=== PATIENT | male | born 1960 | race Caucasian/White ===

== ENCOUNTER 2019-02-03 12:47 | Outpatient (REF) | payer MEDICARE, SELFPAY ==
[2019-02-03 13:07] LABS: HGB 14.1 g/dL (13.5-17.5); Mean Corp. HGB Concentration 32.8 g/dL (32.0-36.0); Mean Corpuscular Hemoglobin 30.2 pg (27.0-33.0); Mean Corpuscular Volume 92.1 fL (80-95); Mean Platelet Volume 9.9 fL (8.0-11.0); Platelet Count 341 x1000/uL (130-400); RBC 4.67 m/cumm (4.50-6.00); RBC Distribution Width 13.5 % (11.8-14.1); White Blood Cell Count 10.76 k/cumm (4.4-10.8)
[2019-02-03 13:31] LABS: ALT 18 U/L (12-78); AST 15 U/L (15-37); Albumin 3.6 g/dL (3.4-5.0); Alkaline Phosphatase 87 U/L (46-116); Anion Gap 8.6 mmol/L (3-11); BUN 15 mg/dL (7-18); Bilirubin, Total 0.3 mg/dL (0.2-1.0); CO2 28.4 mmol/L (21.0-32.0); CREATININE 1.13 mg/dL (0.70-1.30); Chloride 103 mmol/L (98-107); Glucose 112 mg/dL (70-100); Potassium 4.1 mmol/L (3.5-5.1); Sodium 140 mmol/L (136-145); TSH (W/Ref FT4) 7.26 uIU/mL (0.358-3.74); Total Protein 6.8 g/dL (6.4-8.2)
[2019-02-03 13:55] LABS: FREE T4 0.82 ng/dL (0.76-1.46)
== END 2019-02-03 13:07 ==
LOC: NCHCN 12:47
PROVIDERS: PCP Family Medicine; Visit Provider Family Medicine
DX: R63.5 Abnormal weight gain (principal); K76.0 Fatty (change of) liver, not elsewhere classified
CPT/HCPCS: 80053; 85027; 84439; 84443

== ENCOUNTER → 2019-03-19 13:55 | Outpatient (BNVA) | payer MEDICARE, SELFPAY | PROVIDERS: PCP Family Medicine; Referring Provider Family Medicine; Visit Provider Student in an Organized Health Care Education/Training Program | DX: M25.521 Pain in right elbow (principal); M77.12 Lateral epicondylitis, left elbow | CPT/HCPCS: 20605; 99201; 99213; J1030; L3908 ==

== ENCOUNTER 2019-05-05 09:05 | Outpatient (REF) | payer MEDICARE, SELFPAY ==
[2019-05-05 13:39] LABS: TSH (W/Ref FT4) 5.84 uIU/mL (0.358-3.74); Uric Acid 6.6 mg/dL (3.5-7.2)
[2019-05-05 14:08] LABS: FREE T4 0.86 ng/dL (0.76-1.46)
== END 2019-05-05 09:25 ==
LOC: NCHCN 09:05
PROVIDERS: PCP Family Medicine; Visit Provider Family Medicine
DX: R94.6 Abnormal results of thyroid function studies (principal); M10.9 Gout, unspecified
CPT/HCPCS: 84439; 84443; 84550

== ENCOUNTER 2020-03-24 21:38 | Outpatient (REF) | payer MEDICARE, SELFPAY ==
[2020-03-24 20:00] LABS: HCT 45.6 % (40.0-50.0); HGB 15.3 g/dL (13.5-17.5); Mean Corp. HGB Concentration 33.6 g/dL (32.0-36.0); Mean Corpuscular Hemoglobin 30.5 pg (27.0-33.0); Mean Corpuscular Volume 90.8 fL (80-95); Mean Platelet Volume 9.6 fL (8.0-11.0); Platelet Count 373 x1000/uL (130-400); RBC 5.02 m/cumm (4.50-6.00); RBC Distribution Width 13.5 % (11.8-14.1); White Blood Cell Count 10.13 k/cumm (4.4-10.8)
[2020-03-24 20:24] LABS: ALT 21 U/L (16-63); AST 18 U/L (15-37); Albumin 3.9 g/dL (3.4-5.0); Alkaline Phosphatase 70 U/L (46-116); BUN 11 mg/dL (7-18); Bilirubin, Total 0.7 mg/dL (0.2-1.0); Calcium 9.3 mg/dL (8.5-10.1); Chloride 101 mmol/L (98-107); Glucose 94 mg/dL (74-106); Potassium 4.7 mmol/L (3.5-5.1); Sodium 138 mmol/L (136-145); TSH (W/Ref FT4) 2.18 uIU/mL (0.36-3.74); Total Protein 7.3 g/dL (6.4-8.2)
[2020-03-24 20:25] LABS: Hemoglobin A1C 5.8 % (3.8-5.6)
[2020-03-24 21:26] LABS: Calculated LDL 132 mg/dL (<100); Cholesterol 210 mg/dL (<200); HDL Cholesterol 37 mg/dL (40-60); Triglyceride 209 mg/dL (<150)
[2020-03-25 06:47] LABS: Vitamin D 25 Total 56.8 ng/ml (30-100)
== END 2020-03-24 21:58 ==
LOC: NCHCN 21:38
PROVIDERS: PCP Family Medicine; Visit Provider Family Medicine
DX: K76.0 Fatty (change of) liver, not elsewhere classified (principal); R73.03 Prediabetes; E03.9 Hypothyroidism, unspecified; Z79.899 Other long term (current) drug therapy
CPT/HCPCS: 80053; 80061; 82306; 85027; 83036; 84443

== ENCOUNTER 2020-09-16 09:08 | Outpatient (REF) | payer MEDICARE, SELFPAY ==
[2020-09-16 18:42] LABS: ALT 13 U/L (16-63); Anion Gap 8.2 mmol/L (3-11); BUN 17 mg/dL (7-18); CO2 27.8 mmol/L (21.0-32.0); Calculated LDL 99 mg/dL (<100); Chloride 103 mmol/L (98-107); Cholesterol 152 mg/dL (<200); Glucose 104 mg/dL (74-106); HDL Cholesterol 38 mg/dL (40-60); Potassium 4.8 mmol/L (3.5-5.1); Sodium 139 mmol/L (136-145); Triglyceride 78 mg/dL (<150)
== END 2020-09-16 09:28 ==
LOC: NCHCN 09:08
PROVIDERS: PCP Family Medicine; Visit Provider Family Medicine
DX: E78.5 Hyperlipidemia, unspecified (principal); I10 Essential (primary) hypertension
CPT/HCPCS: 80048; 80061; 84460

== ENCOUNTER → 2021-01-26 01:44 | Outpatient (CLI) | payer MEDICARE, SELFPAY ==
--- NOTE | 2021-01-26 09:48 | DI.RAD_ITS ---
EXAM: XR WRIST LT COMPLETE CLINICAL HISTORY: LT WRIST PAIN, M25.532,LT GANGLION CYST VOLAR,M67.432,H/O OLD WRIST FX,. TECHNIQUE: 2D digital imaging was performed. COMPARISON: No exams were available for comparison FINDINGS: Three views of the left wrist reveal degenerative changes in the radiocarpal joint with joint space n arrowing and there is also prominent degenerative subarticular cyst in the radial styloid which measu res approximately 10 x 7 millimeters. There is a fracture in the scaphoid-navicular bone which exhib its some sclerosis and is probably not acute. Scapholunate distance is normal. No carpal dislocation IMPRESSION: Radiocarpal joint degenerative changes. Subtle suggestion of a nonacute appearing fracture of the sc aphoid. Recommend follow-up MRI. DATA REPOSITORY: RADIATION DOSE DELIVERED:
== END ==
PROVIDERS: PCP Family Medicine; Visit Provider Family Medicine
DX: M25.532 Pain in left wrist (principal); M67.432 Ganglion, left wrist; M19.032 Primary osteoarthritis, left wrist
CPT/HCPCS: 73110

== ENCOUNTER 2021-06-03 15:43 | Outpatient (REF) | payer MEDICARE, SELFPAY ==
[2021-06-03 17:08] LABS: HGB 14.3 g/dL (13.5-17.5); MCH 31.2 pg (27.0-33.0); MCHC 32.5 % (32.0-36.0); MCV 95.9 fL (80-95); MPV 9.8 fL (8.0-11.0); Platelet Count 340 10^3/uL (130-400); RBC 4.59 10^6/uL (4.36-5.78); RDW 12.9 % (11.8-14.1); RDW-SD 45.5 fL
[2021-06-03 17:43] LABS: ALT 16 U/L (16-63); AST 19 U/L (15-37); Albumin 3.8 g/dL (3.4-5.0); Alkaline Phosphatase 60 U/L (46-116); Anion Gap 8.4 mmol/L (3-11); BUN 18 mg/dL (7-18); Bilirubin, Total 0.4 mg/dL (0.2-1.0); CO2 27.6 mmol/L (21.0-32.0); Calcium 8.8 mg/dL (8.5-10.1); Chloride 105 mmol/L (98-107); Glucose 110 mg/dL (74-106); Potassium 4.7 mmol/L (3.5-5.1); Sodium 141 mmol/L (136-145); TSH (W/Ref FT4) 0.47 uIU/mL (0.36-3.74); Total Protein 6.8 g/dL (6.4-8.2); Vitamin B12 423 pg/mL (193-986)
== END 2021-06-03 15:44 | disposition home or self-care (01) ==
LOC: NCHCN 15:43
PROVIDERS: PCP Family Medicine; Visit Provider Family Medicine
DX: R73.03 Prediabetes (principal); I10 Essential (primary) hypertension; K76.0 Fatty (change of) liver, not elsewhere classified; Z79.899 Other long term (current) drug therapy
CPT/HCPCS: 80053; 85027; 82607; 83036; 84443

== ENCOUNTER 2021-11-30 16:48 | Outpatient (REF) | payer MEDICARE, SELFPAY ==
[2021-11-30 19:30] LABS: ESR 19 mm/hr (0-20)
[2021-11-30 19:37] LABS: Calculated LDL 158 mg/dL (<100); Cholesterol 232 mg/dL (<200); HDL Cholesterol 41 mg/dL (40-60); Triglyceride 165 mg/dL (<150)
[2021-11-30 19:45] LABS: C-Reactive Protein 0.13 mg/dL (0.0-0.3)
[2021-12-02 09:15] LABS: Cyclic Citrullinated Peptide <2.5 U/mL (<5.0)
== END 2021-11-30 16:49 | disposition home or self-care (01) ==
LOC: NCHCN 16:48
PROVIDERS: PCP Family Medicine; Visit Provider Family Medicine
DX: I10 Essential (primary) hypertension (principal); M25.531 Pain in right wrist; M25.532 Pain in left wrist; E78.5 Hyperlipidemia, unspecified
CPT/HCPCS: 80061; 85652; 86200; 86140

== ENCOUNTER 2021-12-22 00:56 | Outpatient (CLI) | payer MEDICARE, SELFPAY ==
--- NOTE | 2021-12-22 | DI.CTLCSR_ITS ---
Exam(s) CT CHEST LUNG CANCER SCREEN EXAM: CT CHEST LUNG CANCER SCREEN CLINICAL HISTORY: SCREENING FOR LUNG CA, SMOKER, F17.210 TECHNIQUE: Imaging Protocol: Axial computed tomography images with coronal and sagittal reformatted images were created and reviewed COMPARISON: No exams were available for comparison FINDINGS: Tracheobronchial tree: Patent where visualized. Pulmonary parenchyma: No consolidation or dominant measurable mass. No architectural distortion. Ther e appear fissural nodules associated with the left major and right minor fissures. Lung Nodules: There is a 3 mm nodule in the right middle lobe. There is a 3 mm nodule in the left up per lobe. Mediastinum and Yumi: No dominant adenopathy or fluid collection. The esophagus is unremarkable. Thyroid gland: Unremarkable. Lymph nodes: Unremarkable. Pleura: No effusion or pneumothorax. Heart: The heart is not dilated. Coronary artery calcifications are present. No pericardial effusion . Aorta: Thoracic aorta non-dilated.Atherosclerosis. Upper abdomen: Unremarkable. Soft Tissues: Unremarkable. Bones: Within normal limits. IMPRESSION: Less than 4 mm nodules in the right mid lung left upper lobes. Lung RADS Cat 2 - Benign Appearance / Behavior: Nodules with a very low likelihood of becoming a clin ically active cancer due to size or lack of growth Lung-RADS 1.0 CATEGORIES: Category 0 - Prior chest CT exam(s) being located for comparison. Category 1 - Annual screening in 12 months. No nodules or definitely benign nodules. Category 2 - Annual screening in 12 months. Benign appearance. Nodules with low likelihood of becomin g active cancer. Category 3 - 6-month follow-up. Probably benign. Short-term follow-up suggested. Nodules with low lik elihood of becoming active cancer. Category 4A - 3-month follow-up and CT/PET if >8 mm in size. Suspicious finding. Findings which requi re additional testing. Category 4B - Findings which require additional testing and tissue sampling. Suspicious finding. Category 4X - Category 3 or 4 nodules with additional features or imaging findings that increases the suspicion of malignancy. Modifier S- Potentially clinically significant finding. (Non lung cancer) RADIATION DOSE DELIVERED: 92.6mGy.cm Total DLP !Error CTDIvol 92.6mGy.cm Total DLP !Error CTDIvol DATA REPOSITORY: All CT scans at this facility are submitted to the National Radiology Data Registry (NRDR) Dose Index Registry (DIR) with the [employer] (ACR). RADIATION OPTIMIZATION: All CT scans at this facility use at least one of these dose optimization te chniques: automated exposure control; mA and/or kV adjustment per patient size (includes targeted exa ms where dose is matched to clinical indication); or iterative reconstruction.
== END 2021-12-22 01:16 ==
PROVIDERS: PCP Family Medicine; Visit Provider Family Medicine
DX: F17.210 Nicotine dependence, cigarettes, uncomplicated (principal); Z12.2 Encounter for screening for malignant neoplasm of respiratory organs; R91.8 Other nonspecific abnormal finding of lung field
CPT/HCPCS: 71271

== ENCOUNTER 2022-04-10 02:19 | Outpatient (CLI) | payer MEDICARE, SELFPAY ==
--- NOTE | 2022-04-10 11:19 | DI.RAD_ITS ---
Exam(s) XR HIP RT COMPLETE AP PELVIS EXAM: XR HIP RT COMPLETE AP PELVIS INDICATION: RT HIP PAIN, M25.551. COMPARISON: No exams were available for comparison TECHNIQUE: 2D digital imaging was performed. Three views. FINDINGS: Hardware at the lumbosacral junction. Spinal stimulator device. Degenerative changes at the inferio r SI joints and pubic symphysis. There is mild bilateral acetabular spurring. The hip joint spaces are well maintained vascular calcifications. IMPRESSION: Mild degenerative changes of both hips. DATA REPOSITORY: RADIATION DOSE DELIVERED:
== END 2022-04-10 02:39 ==
LOC: DI 02:19
PROVIDERS: PCP Family Medicine; Visit Provider Family Medicine
DX: M25.551 Pain in right hip (principal)
CPT/HCPCS: 73502

== ENCOUNTER 2022-05-25 10:51 | Outpatient (CLI) | payer MEDICARE, SELFPAY ==
--- NOTE | 2022-05-25 08:30 | DI.RAD_ITS ---
Exam(s) XR LUMBAR SPINE COMPLETE EXAM: XR LUMBAR SPINE COMPLETE CLINICAL HISTORY: eval LBP. TECHNIQUE: 2D digital imaging was performed. COMPARISON: No exams were available for comparison FINDINGS: Five views: There is posterior fusion hardware at L5-S1 level comprised of posterior fusion rods and bilateral in trapedicular screws at both levels. No evidence of fracture. Mild degenerative anterolisthesis L4 upon L5 noted. Mild multilevel disc s pace narrowing. No scoliosis. Stimulator-electrode wires noted posteriorly at L4-5 level. IMPRESSION: DATA REPOSITORY: RADIATION DOSE DELIVERED:
== END 2022-05-25 10:52 | disposition home or self-care (01) ==
LOC: DIORS 10:52
PROVIDERS: PCP Family Medicine; Referring Provider Family Medicine; Visit Provider Student in an Organized Health Care Education/Training Program
DX: M25.851 Other specified joint disorders, right hip (principal); M47.816 Spondylosis without myelopathy or radiculopathy, lumbar region; M24.89 Other specific joint derangement of other specified joint, not elsewhere classified
CPT/HCPCS: 99203; 72110

== ENCOUNTER 2022-06-08 02:09 | Outpatient (CLI) | payer MEDICARE, SELFPAY ==
--- NOTE | 2022-06-08 08:15 | DI.RAD_ITS ---
Exam(s) RF JOINT INJECTION FLUORO GUID EXAM: RF JOINT INJECTION FLUORO GUID CLINICAL HISTORY: R HIP INJ UNDER FLUORO,RT HIP PAIN, M25.551,FLUORO ASSISTED INJECTION. TECHNIQUE: 2D and realtime digital imaging was performed. COMPARISON: No exams were available for comparison FINDINGS: Fluoroscopy was provided for Dr. Guallpa for guidance with performing a right hip injection Please see procedure note for details. Fluoro time: 0.04seconds RADIATION DOSE DELIVERED: brad Sams= 0.63 mGy
[2022-06-08] MEDS: Omnipaque 300 MG/ML 10 ML BTL IJ (15:16)
[2022-06-08] MEDS: methylPREDNISolone ACETATE 80 MG/ML VIAL IM (15:16)
[2022-06-08] MEDS: Bupivacaine 0.5% Pres-Free 10 ML VIAL 5 ML IJ (15:17)
--- NOTE | 2022-06-08 19:58 | W.PROCNOTE ---
Date of service: 06/08/22 Time of Service: 14:20 Procedure Note Date of procedure: 06/08/22 Procedure: Right Hip Injection with Fluoroscopic Guidance Surgeon/Proceduralist/Physician: Solitario Guallpa Procedure Diagnosis: Right Hip Pain Procedure Indications: Shar has had persistent pain of the RIGHT hip and groin. Noninvasive measures have been tried. To serve as both diagnostic and therapeutic, an injection under fluoroscopy was recommended. I had discussed the risks of the procedure and the patient elected to proceed. Procedure Description: Shar was greeted in the flouroscopy room. The correct side was identified and the consent was reviewed with the patient and signed. The patient was then placed in the supine position on the fluoroscopy table. The RIGHT hip was then prepped with Chloraprep. The anterolateral injection starting point was identiifed by bony landmarks and fluoroscopy. The skin and soft tissue in the tract of the injection was anesthetized with 1% Lidocaine. A spinal needle was then inserted deep into the hip joint at the level of the lateral femoral neck under fluoroscopic guidance. A small amount of Omnipaque solution was injected to confirm intraarticular placement. Once confirmed, the hip was injected with 6cc of 0.5% Bupivicaine and 80mg of Depo-Medrol. A bandaid was placed on the injection site. The patient tolerated the procedure well.
== END 2022-06-08 02:29 ==
LOC: DI 02:09
PROVIDERS: PCP Family Medicine; Visit Provider Student in an Organized Health Care Education/Training Program
DX: M25.551 Pain in right hip (principal)
CPT/HCPCS: 20610; 77002; J1040

== ENCOUNTER 2022-09-20 13:07 | Outpatient (CLI) | payer MEDICARE, SELFPAY ==
[2022-09-20 13:43] VITALS: BP 120/78; PULSE 66; RESP 20; TEMP 37; O2SAT 98
[2022-09-20] MEDS: methylPREDNISolone ACETATE 80 MG/ML VIAL IJ (14:12)
[2022-09-20] MEDS: Omnipaque 240 MG/ML 50 ML BTL IJ (14:12)
[2022-09-20 14:16] VITALS: BP 115/77; PULSE 68; RESP 14; O2SAT 97
--- NOTE | 2022-09-20 14:21 | DI.RAD_ITS ---
Exam(s) XR PAIN CLINIC SACRIOILIAC 2V EXAM: XR PAIN CLINIC SACRIOILIAC 2V CLINICAL HISTORY: Dx: Sacroiliac Joint Dysfunction. TECHNIQUE: Fluoroscopy was provided for the referring physician for guidance with performing pain cl inic injection procedure. COMPARISON: No exams were available for comparison FINDINGS: Please see procedure note for details. Fluoro time: 15 seconds RADIATION DOSE DELIVERED: Ka,r=4.83 mGy
--- NOTE | 2022-09-20 14:23 | PDOC.PAIN ---
Date of service: 09/20/22 Time of Service: 14:23 Pain Clinic Procedure Note Procedure Note Procedure Note: INTRA-ARTICULAR SI JOINT INJECTION Shar Lindsey has been referred to the [facility] for intra-articular SI joint injection. COMMENTS: He was referred for this procedure by his orthopedic surgeon (Dr. Guallpa). Pre-procedure pain VAS was 5/10. Dx: Sacroiliac joint dysfunction Patient was interviewed and the medical record reviewed. There were no medical, pharmacologic, radiographic or other structural contraindications to attempting fluoroscopically guided intra-articular SI joint injection. Risks and expected side effects as well as potential benefit of the procedure were reviewed and voiced concerns addressed. The printed consent form was signed and witnessed. Standard time-out procedure was performed. Patient was placed in the prone position on the fluoroscopy table and automated blood pressure cuff and pulse oximeter applied. The skin entry point for approaching the right SI joint was identified under the most advantageous fluoroscopic view and marked. Following thorough Chlorhexadine preparation of the skin and draping and 1% lidocaine infiltration of the skin entry point and subcutaneous tissues, a 22 gauge spinal needle was placed under fluoroscopic guidance into the right SI joint was identified under the most advantageous fluoroscopic view and marked. Intra-articular placement was confirmed by a clear arthrogram resulting from the injection of 0.25ml Omnipaque 240, 1ml 1% lidocaine, and 80mg Depomedrol were injected intra-articularily with an initial reproduction of a significant component of the usual pain. Vital signs were stable throughout the procedure and were as recorded in the docflowsheet by the nursing staff. If given, dosages of intravenous drugs for anxiolysis and analgesia were documented in MAR. Follow up plans and appointments were discussed with the patient. Post procedure instruction was given as documented in nursing documentation and having met discharge criteria, and was discharged from the [facility]. COMMENTS: Post-procedure pain VAS was 2/10. Srinath Wiggins DO, MPH [facility]-Pain Management [facility] CC: Verónica Greer
== END 2022-09-20 13:08 | disposition home or self-care (01) ==
LOC: PC 13:08
PROVIDERS: PCP Family Medicine; Visit Provider Preventive Medicine Occupational Medicine
DX: M54.50 Low back pain, unspecified (principal); M53.3 Sacrococcygeal disorders, not elsewhere classified
CPT/HCPCS: G0260; 72200; J1040; Q9967

== ENCOUNTER 2022-11-20 17:14 | Outpatient (REF) | payer MEDICARE, SELFPAY ==
[2022-11-20 18:49] LABS: HCT 43.6 % (40.0-50.0); HGB 14.4 g/dL (13.5-17.5); MCH 30.9 pg (27.0-33.0); MCV 94 fL (80-95); MPV 9.6 fL (8.0-11.0); Platelet Count 313 10^3/uL (130-400); RBC 4.66 10^6/uL (4.36-5.78); RDW 12.7 % (11.8-14.1); RDW-SD 43.8 fL; WBC 7.77 10^3/uL (4.4-10.8)
[2022-11-20 19:04] LABS: ALT 11 U/L (16-63); AST 24 U/L (15-37); Albumin 3.9 g/dL (3.4-5.0); Alkaline Phosphatase 51 U/L (46-116); BUN 14 mg/dL (7-18); Bilirubin, Total 0.6 mg/dL (0.2-1.0); CREATININE 1.1 mg/dL (0.70-1.30); Chloride 102 mmol/L (98-107); Estimated GFR 75.43 (mL/min/1.73m2); Glucose 96 mg/dL (74-106); Potassium 4.7 mmol/L (3.5-5.1); Sodium 137 mmol/L (136-145); Total Protein 7.3 g/dL (6.4-8.2)
[2022-11-21 19:14] LABS: Estimated Average Glucose 117 mg/dL; Hemoglobin A1C 5.7 % (<5.7)
[2022-11-22 10:54] LABS: HIV-1/2 Ag & Ab Screen Negative (Negative)
== END 2022-11-20 17:15 | disposition home or self-care (01) ==
LOC: NCHCN 17:14
PROVIDERS: PCP Family Medicine; Visit Provider Family Medicine
DX: R73.03 Prediabetes (principal); Z11.4 Encounter for screening for human immunodeficiency virus [HIV]; K76.0 Fatty (change of) liver, not elsewhere classified
CPT/HCPCS: 80053; 85027; 87389; 83036

== ENCOUNTER 2023-03-07 01:37 | Outpatient (CLI) | payer MEDICARE, SELFPAY ==
--- NOTE | 2023-03-07 | DI.CTLCSR_ITS ---
Exam(s) CT CHEST LUNG CANCER SCREEN EXAM: CT CHEST LUNG CANCER SCREEN CLINICAL HISTORY: CIGARETTE SMOKER, F17.210, SCREENING FOR LUNG CA TECHNIQUE: Imaging Protocol: Axial computed tomography images with coronal and sagittal reformatted images were created and reviewed COMPARISON: CT CT CHEST LUNG CANCER SCREEN from 12/22/2021 FINDINGS: Tracheobronchial tree: Patent where visualized. Pulmonary parenchyma: No consolidation or dominant measurable mass. No architectural distortion. Lung Nodules: There are stable pulmonary nodules. There are no nodules larger than 3 mm. Mediastinum and Yumi: No dominant adenopathy or fluid collection. The esophagus is unremarkable. Thyroid gland: Unremarkable. Lymph nodes: Unremarkable. Pleura: No effusion or pneumothorax. Heart: The heart is not dilated. Coronary artery calcifications are present. No pericardial effusion . Aorta: The ascending thoracic aorta measures 4.5 x 4.6 cm. Upper abdomen: Unremarkable. Soft Tissues: Mild gynecomastia. Bones: Within normal limits. IMPRESSION: Stable pulmonary nodules. Lung RADS Cat 2 - Benign Appearance / Behavior: Nodules with a very low likelihood of becoming a clin ically active cancer due to size or lack of growth Lung-RADS 1.0 CATEGORIES: Category 0 - Prior chest CT exam(s) being located for comparison. Category 1 - Annual screening in 12 months. No nodules or definitely benign nodules. Category 2 - Annual screening in 12 months. Benign appearance. Nodules with low likelihood of becomin g active cancer. Category 3 - 6-month follow-up. Probably benign. Short-term follow-up suggested. Nodules with low lik elihood of becoming active cancer. Category 4A - 3-month follow-up and CT/PET if >8 mm in size. Suspicious finding. Findings which requi re additional testing. Category 4B - Findings which require additional testing and tissue sampling. Suspicious finding. Category 4X - Category 3 or 4 nodules with additional features or imaging findings that increases the suspicion of malignancy. Modifier S- Potentially clinically significant finding. (Non lung cancer) RADIATION DOSE DELIVERED: 76.38mGy.cm Total DLP 76.38mGy.cmTotal DLP DATA REPOSITORY: All CT scans at this facility are submitted to the National Radiology Data Registry (NRDR) Dose Index Registry (DIR) with the [employer] (ACR). RADIATION OPTIMIZATION: All CT scans at this facility use at least one of these dose optimization te chniques: automated exposure control; mA and/or kV adjustment per patient size (includes targeted exa ms where dose is matched to clinical indication); or iterative reconstruction.
== END 2023-03-07 01:57 ==
PROVIDERS: PCP Family Medicine; Visit Provider Family Medicine
DX: F17.210 Nicotine dependence, cigarettes, uncomplicated (principal)
CPT/HCPCS: 71271

== ENCOUNTER 2023-06-04 11:02 | Outpatient (REF) | payer MEDICARE, SELFPAY ==
[2023-06-04 15:46] LABS: TSH (W/Ref FT4) 2.42 uIU/mL (0.36-3.74)
== END 2023-06-04 11:03 | disposition home or self-care (01) ==
LOC: NCHCN 11:02
PROVIDERS: PCP Family Medicine; Visit Provider Family Medicine
DX: E03.9 Hypothyroidism, unspecified (principal)
CPT/HCPCS: 84443

== ENCOUNTER → 2023-08-20 13:45 | Outpatient (BNVA) | payer MEDICARE, SELFPAY | PROVIDERS: PCP Family Medicine; Referring Provider Family Medicine; Visit Provider Surgery | DX: K40.90 Unilateral inguinal hernia, without obstruction or gangrene, not specified as recurrent (principal); Z12.11 Encounter for screening for malignant neoplasm of colon | CPT/HCPCS: 99214 ==

== ENCOUNTER 2023-10-17 07:05 | Day surgery (SDC) | payer MEDICARE, SELFPAY ==
[2023-10-17] VITALS (10 sets, daily range): BP systolic 98–127; BP diastolic 66–86; PULSE 43–70; RESP 15–20; TEMP 36.5–36.8; O2SAT 97–100; BMI 30.1
--- NOTE | 2023-10-17 06:47 | HPE_ITS ---
Assessment and Plan Assessment and plan (1) Right inguinal hernia: Status: Acute Assessment and plan: Mr. Lindsey is a pleasant 63-year-old gentleman whom I saw in [facility] today for repair of a right inguinal hernia that is starting to cause him some discomfort. He notices some burning pain. We discussed the procedure in detail using a pamphlet. We went over the pathophysiology of hernias. We reviewed risks of strangulation. We reviewed the signs and symptoms of incarceration or strangulation which he should seek immediate help in the emergency department. We reviewed the complications risk. After conversation he seemed to have a good understanding of both the repair as well as the possible complications. Risks, benefits and complications have been reviewed. Complications include but are not limited to bleeding, pain, infection, injury to underlying structures like bowel, recurrence, hematoma, seroma, chronic pain and adverse reaction to the medication. Questions were entertained and answered to their satisfaction and they wished to proceed. No guarantees were given or implied. Anesthesia: general Previous surgical intolerances: No Previous surgical complications: No Pulmonary risk factors: age > 60 and smoker Date of surgery: TBD Planned procedure: Yes Sleep apnea risks: No Can climb one flight of stairs (12-13 steps) in less than 30 seconds without stopping and without symptoms: Yes The surgery proposed for this patient is: low risk Active cardiac conditions: none Active risk factors: none ASA (acetylsalicylic acid): not used Beta blockers: not used Proceed with hernia repair with mesh History of Present Illness Narrative: Mr. Lindsey is a pleasant 63-year-old gentleman whom I saw in the office in August for a right inguinal hernia that was starting to cause him some discomfort. He thinks it probably started about a year ago. Over the last few months it has become a little bit more uncomfortable especially when he is cutting wood and stacking wood or if he is standing for long periods of time. He has noted a bulge now. He also has a burning sensation in his groin. He denies any issues with urination or with bowel movements. He has never had a hernia repair in the past. He has chronic pain secondary to multiple orthopedic issues. He has had back surgery, bilateral knee surgery and left ankle surgery. He takes Ultram, ibuprofen and Tylenol on a as needed basis. He says he has not taken the Ultram in a long time. He has not had any issues with anesthesia before. No family history of anesthesia issues. The patient is a smoker. He smokes about 1 to 1-1/2 packs a day for the last 40 to 45 years. He has not had any alcohol in the last 6 years. Review of Systems All systems reviewed & are unremarkable except as noted in HPI and below PFSH All Active Problems Encounter for screening colonoscopy (Acute) Right groin pain (Acute) Weight loss (Acute) Right inguinal hernia (Acute) Positive fecal occult blood test (Acute) Screening for colon cancer (Acute) Alcoholism (Acute) chronic, in remission Medical History Right hip pain Erectile dysfunction Hypertensive retinopathy Femoroacetabular impingement of right hip Derangement of right SI joint Lumbar spondylosis Low back pain Obesity Tobacco dependence Degenerative joint disease Gout Obstructive sleep apnea Anxiety Seasonal allergic rhinitis Subclinical hypothyroidism Prediabetes Bipolar disorder with depression Fatty infiltration of liver Hearing loss, bilateral Hypertension Hyperlipidemia Pyuria, sterile GERD (gastroesophageal reflux disease) Major depression, chronic Surgical History (Updated 10/17/23 @ 07:56 by Nicolette Trevizo) History of total bilateral knee replacement (TKR) S/P insertion of spinal cord stimulator placed 1999-pt. states battery no longer works but hardware is still in there Hx of arthroscopic knee surgery H/O spinal fusion History of colonoscopy Last one in [facility] per referral note Social History Smoking/Tobacco Use Status: Current every day Tobacco Type: cigarettes Smoking risk assessment performed?: Yes Alcohol Intake: former Drug use: Occasionally Substance use type: marijuana Housing: house Current gender identity: male Do you feel safe at home: Yes Do you feel safe in your relationship?: Yes Meds Allergies and Home Medications Allergies Allergy/AdvReac Type Severity Reaction Status Date / Time Penicillins Allergy Severe Anaphylaxsi Unverified 10/15/23 15:30 s Home Medications Medication Instructions Recorded Confirmed Type ibuprofen 200 mg tablet 800 mg PO Q6H PRN 07/02/20 10/17/23 History tramadol 50 mg tablet 50 mg PO Q8H PRN pain #30 tabs 05/26/22 10/17/23 Rx sildenafil 100 mg tablet (Viagra) 100 mg PO DAILY PRN 06/15/22 10/17/23 History acetaminophen 325 mg capsule 325 mg PO ONCE PRN 08/14/23 10/17/23 History (Tylenol) Exam Const General: cooperative, comfortable and no acute distress Nutritional Appearance: average body habitus Orientation: alert and oriented x3 HENMT Head: normocephalic and atraumatic Resp Effort & Inspection: normal respiratory effort Auscultation: clear to auscultation bilaterally Cardio Rate: regular rate Rhythm: regular rhythm GI Inspection: normal to inspection Palpation: soft, no hepatosplenomegaly, hernia (Right inguinal hernia) and nontender
--- NOTE | 2023-10-17 06:51 | ROE_ITS ---
Date of service: 10/17/23 Time of Service: 09:49 Operative Note Operative Note DATE OF PROCEDURE: 10/17/23 PRE-OP DIAGNOSIS: Right inguinal hernia POST-OP DIAGNOSIS: same (direct and indirect) PROCEDURE: Right inguinal hernia repair with mesh SURGEON: Bekah Edgar RUG UNDERLAY MACHINE OPERATOR: Stephany Ribeiro ANESTHESIA TYPE: Local By Surgeon, General LMA/ETT and Primary Nerve Block Refer to Anesthesia Record PATHOLOGY: none sent COMPLICATIONS: None Patient was transported to: PACU Patient's condition: stable Implants: Per Fix Light Plug: REF- [id number] LOT- [id number] 2027-07-02 Indications: Mr. Lindsey is a pleasant 63-year-old gentleman whom I saw in [facility] today for repair of a right inguinal hernia that is starting to cause him some discomfort. He notices some burning pain. We discussed the procedure in detail using a pamphlet. We went over the pathophysiology of hernias. We reviewed risks of strangulation. We reviewed the signs and symptoms of incarceration or strangulation which he should seek immediate help in the emergency department. We reviewed the complications risk. After conversation he seemed to have a good understanding of both the repair as well as the possible complications. Risks, benefits and complications have been reviewed. Complications include but are not limited to bleeding, pain, infection, injury to underlying structures like bowel, recurrence, hematoma, seroma, chronic pain and adverse reaction to the medication. Questions were entertained and answered to their satisfaction and they wished to proceed. No guarantees were given or implied. Findings: Large indirect hernia and medium sized direct hernia Procedure Description: After informed concent was obtained the patient was taken to the operating room and placed in a supine position. Monitors and SCDs were applied and a timeout was done. The patient's name, date of , procedure type, procedure site, allergies to medications, preoperative antibiotic, and DVT prophylaxis were all reviewed. Fire risk was assessed. Next anesthesia did a tap block on the right side under ultrasound guidance. Please see their separate dictation. Once anesthesia was done the abdomen was prepped and draped in a sterile surgical fashion. 0.5% Marcaine was injected into the dermis in the right lower quadrant. An incision was made with a 15 blade in the right lower quadrant. Dissection was done with cautery through the subcutaneous tissues and Rene's fascia down to the external oblique fascia. The external ring was identified and the external oblique fascia was opened sharply through the external ring. The cut fascia was grasped with hemostats the cord structures were identified and a [place] drain was placed around them. The ilioinguinal nerve was identified and cut. The cremasteric muscle was dissected away from the cord structures using both cautery and blunt dissection. Pre-peritoneal fat was identified and removed from the cord structures using blunt dissection. The fat was pushed back into the peritoneum. An XL plug was placed into the indirect defect and secured with 2-0 proline. A flat piece of mesh was then attached to the lacunar ligament using a 2-0 Prolene double armed suture. The mesh was secured laterally and medially with a 2-0 Prolene, with a running suture. The tails of the mesh were wrapped around the cord structures effectively cinching down the internal ring. Once the mesh was secured the tissues were irrigated with some normal saline. No bleeding was identified. The external oblique fascia was reapproximated using 2-0 Vicryl running suture. The Rene's fascia was reapproximated using interrupted 3-0 Vicryl. The dermis was reapproximated with a running 4-0 Vicryl. The skin was cleaned and dried and skin affix was applied. The patient was woken up and taken back to recovery in stable condition. There were no immediate complications. Sponge, instrument and needle counts were correct at the end of the case x2.
--- NOTE | 2023-10-17 06:54 | PDOC.DSDIS_ITS ---
Date of service: 10/17/23 Time of Service: 13:09 Discharge Plan Disposition Patient Disposition: Home Condition: Stable Discharge Details Reason For Visit: [facility] Attending Provider: Bekah Edgar Primary Care Provider: Verónica Greer Home Meds and New Rx's Prescriptions: Continued ibuprofen 200 mg tablet 800 mg PO Q6H PRN tramadol 50 mg tablet 50 mg PO Q8H PRN (Reason: pain) Qty: 30 0RF sildenafil [Viagra] 100 mg tablet 100 mg PO DAILY PRN Rx Instructions: administer 30 minutes to 4 hours before activity acetaminophen [Tylenol] 325 mg capsule 325 mg PO ONCE PRN Discharge Instructions Additional Instructions: Activity at Home after surgery: 1. Make sure you walk outside at least 4 times per day 2. You should be able to climb a flight of stairs 3. No driving while in pain or taking pain medications 4. No strenuous activity or heavy lifting for 4 weeks (open surgery) Diet, Nutrition, & wound healin. Avoid alcohol until after you are recovered from your surgery 2. Make sure to eat plenty of lean protein (meat, fish, eggs, cottage cheese, beans) 3. Eat a variety of fruits and vegetables. Eat plenty of high fiber foods to avoid constipation. 4. Drink plenty of liquids to stay hydrated and avoid constipation Pain Medications: 1. Tylenol 650mg every 6 hours as needed and Ibuprofen 600 mg every 6 hours as needed. You may alternate between the 2 medications every 3 hours 2. If a narcotic has been prescribed take as directed only for breakthrough pain For Constipation: 1. Take Milk of Magnesia or MiraLax as needed for constipation Other: 1. You may shower daily. Do not scrub the incisions 2. Do not soak the incisions for 1 week 3. You may alternate ice and heat as needed for pain and swelling Wound Care: 1. Keep the incisions clean and dry Please call our office if you develop: 1. Fevers >101.5 2. Nausea or Vomiting 3. Worsening pain 4. Redness and thick discharge from the wounds If after hours please call the Hospital at and ask to speak to the on-call surgeon Referrals: Bekah Edgar MD [ [facility] STAFF PHYSICIAN] - Activity:: as above Diet:: As Tolerated Discharge Orders Discharge Orders: Discharge Order (Routine); Ordered 10/17/23 Ordered By: Bekah Edgar DS: Diagnosis Discharge Diagnosis (1) Right inguinal hernia: Status: Acute Asessment and Plan: The patient is doing well post-op from his right inguinal hernia surgery.? he is not having no nausea or vomiting. He is tolerating liquids and a snack. The pt is not having any chest pain or SOB.? His pain is adequately controlled. ?HEENT:? no eye pain/drainage/redness/swelling. Mild sore throat ?Cardio- NSR, no chest pain, BP stable- see VS record ?Pulm: no sob or productive cough. No hemoptysis ?Incision- dressing is c/d/i w/ no excessive bleeding or drainage ?I discussed with the patient the findings at the time of surgery and the patient?s progress. ?We reviewed expectations at home; what the patient could expect for recovery time, and in the post-operative period.? We discussed the importance of walking to avoid blood clots and pneumonia.? We discussed and reviewed the patient's post-operative wound care and dressing needs.?? We reviewed their step-crooks pain management plan, Rx called to the pharmacy of their choice.? We reviewed activity and limitations-see discharge instructions. We reviewed warning signs, and when to seek medical attention- see d/c instructions.?? Patient was given a postoperative follow-up appointment. Patient verbalized understanding of his postoperative instructions, how to take care of himself and his incision, and the pain management plan. Please see discharge instructions.?
[2023-10-17] MEDS: Acetaminophen 500 MG TAB 1000 MG PO (07:50)
[2023-10-17] MEDS: Gabapentin 300 MG CAP 600 MG PO (07:50)
[2023-10-17] MEDS: Celecoxib 200 MG CAP PO (07:51)
[2023-10-17] MEDS: Lactated Ringers 1,000 ML 80 ML IV (07:52)
--- NOTE | 2023-10-17 08:09 | ANES.PREOP_ITS ---
General Info Date of Service Date Performed: 10/17/23 Height: 6 ft Weight: 100.8 kg Body Mass Index (BMI): 30.1 Surgical Procedure: Operation Date: 10/17/23 08:40 Proposed Procedure Side Surgeon p Herniorrhaphy Inguinal w/Mesh Right Bekah Edgar MD Meds Allergies and Home Medications Allergies Allergy/AdvReac Type Severity Reaction Status Date / Time Penicillins Allergy Severe Anaphylaxsi Unverified 10/15/23 15:30 s Home Medication Medication Instructions Recorded ibuprofen 200 mg tablet 800 mg PO Q6H PRN 07/02/20 tramadol 50 mg tablet 50 mg PO Q8H PRN pain #30 tabs 05/26/22 sildenafil 100 mg tablet (Viagra) 100 mg PO DAILY PRN 06/15/22 acetaminophen 325 mg capsule 325 mg PO ONCE PRN 08/14/23 (Tylenol) Current Visit Medications: Current Medications Generic Name Dose Route Start Last Admin Trade Name Freq PRN Reason Stop Dose Admin Acetaminophen 1,000 mg 10/17/23 06:00 10/17/23 07:50 Acetaminophen 500 Mg Tab PO 11/15/23 23:59 1,000 mg PREOP DEJA Administration Celecoxib 200 mg 10/17/23 06:00 10/17/23 07:51 Celecoxib 200 Mg Cap PO 11/15/23 23:59 200 mg PREOP DEJA Administration Gabapentin 600 mg 10/17/23 06:00 10/17/23 07:50 Gabapentin 300 Mg Cap PO 11/15/23 23:59 600 mg PREOP DEJA Administration Ringer's Solution 1,000 mls @ 80 mls/hr 10/17/23 06:00 10/17/23 07:52 IV 11/15/23 23:59 80 mls/hr INFUSION DEJA Administration Clindamycin Phosphate/Dextrose 900 mg in 50 mls @ 50 mls/hr 10/17/23 06:00 Cleocin In D5w IVPB 10/17/23 23:59 PREOP DEJA Ondansetron HCl 4 mg/ Sodium 52 mls @ 200 mls/hr 10/17/23 06:53 Chloride IVPB 11/16/23 06:52 Q6H PRN PRN IV Miscellaneous Supplies 1 each 10/17/23 06:00 Iv Access IV 11/15/23 23:59 DIRECTED DEJA Sodium Chloride 0 ml 10/17/23 06:00 Normal Saline Flush 10 Ml Syr IV 11/15/23 23:59 PRN PRN Sodium Chloride 0 ml 10/17/23 06:00 Normal Saline 10 Ml Vial IJ 11/15/23 23:59 DIRECTED PRN Sterile Water 0 ml 10/17/23 06:00 Water,Injection,Sterile 10 Ml Vial IJ 11/15/23 23:59 DIRECTED PRN Tramadol HCl 50 mg 10/17/23 06:53 Tramadol 50 Mg Tab PO 11/16/23 06:52 Q6H PRN PRN Pain PFSH Active Problems Active Problems: Problem Status Onset Code Encounter for screening colonoscopy Z12.11 Right groin pain R10.31 Weight loss R63.4 Right inguinal hernia K40.90 Positive fecal occult blood test R19.5 Screening for colon cancer Z12.11 Alcoholism F10.20 Medical History Medical History Right hip pain Erectile dysfunction Hypertensive retinopathy Femoroacetabular impingement of right hip Derangement of right SI joint Lumbar spondylosis Low back pain Obesity Tobacco dependence Degenerative joint disease Gout Obstructive sleep apnea Anxiety Seasonal allergic rhinitis Subclinical hypothyroidism Prediabetes Bipolar disorder with depression Fatty infiltration of liver Hearing loss, bilateral Hypertension Hyperlipidemia Pyuria, sterile GERD (gastroesophageal reflux disease) Major depression, chronic Surgical History Surgical History (Updated 10/17/23 @ 07:56 by Nicolette Trevizo) History of total bilateral knee replacement (TKR) S/P insertion of spinal cord stimulator placed 2000-pt. states battery no longer works but hardware is still in there Hx of arthroscopic knee surgery H/O spinal fusion History of colonoscopy Last one in [facility] per referral note Tobacco Smoking/Tobacco Use Status: Current every day Tobacco Type: cigarettes Alcohol Alcohol Intake: former Substance Use Substance use: Occasionally Substance use type: marijuana Vital Signs and Lab Results Vital Signs Most Recent Vital Signs in EMR: Most Recent Vital Signs Temp Pulse Resp BP Pulse Ox 36.8 C 43 L 16 98/75 L 99 10/17/23 07:10 10/17/23 07:10 10/17/23 07:10 10/17/23 07:10 10/17/23 07:10 Lab Results Blood Type / Crossmatch: No Data to Display Complete Blood Count: No Data to Display Complete Metabolic Panel: No Data to Display Liver Function Panel: No Data to Display Coagulation Panel: No Data to Display Cardiac Panel: No Data to Display Arterial Blood Gas: No Data to Display Venous Blood Gas: No Data to Display Pancreas Panel: No Data to Display Thyroid Panel: No Data to Display Infectious Disease: No Data to Display Blood Cultures: No Data to Display Toxicology Panel: No Data to Display Anesthesia Assessment and Plan Anesthesia History Personal History: No History of Anesthesia Complications Family History: No Family History of Anesthesia Complications Exercise Tolerance Exercise Tolerance: Metabolic Equivalents>4 Pertinent Negatives Pertinent Negatives: No Symptoms of GERD Cardiac & Pulmonary Exam Cardiac Exam: Normal S1/S2 Heart Sounds Pulmonary Exam: Clear Bilateral Breath Sounds Implantable Cardiac Device Does patient have a Pacemaker or an ICD?: No Airway Exam Known Difficult Airway: No Mallampati Class: 2 Mouth Opening: Narrow (< 3cm) Thyromental Distance: Greater than 3 cm Neck Range of Motion: Full ROM Neck Circumference: Normal Teeth Condition: Normal Dentition ASA Classification ASA Score: ASA 2 Emergency Case?: No NPO Status NPO Status: NPO Clears >2 hours, Solids >8 hours Anesthesia Plan Resuscitation Status: Full Code Anesthesia Technique: General Anesthesia Airway Planned: Endotracheal Tube Pain Management: Surgeon and patient request nerve block Monitors Used: Standard Monitors and SedLine
[2023-10-17] MEDS: CLINDAMYCIN 900 MG/50 ML BAG 50 MG IVPB (08:54)
--- NOTE | 2023-10-17 09:28 | W.ANESNERVE ---
Nerve Block Single Injection Procedure Date and Time Date Performed: 10/17/23 Procedure Start: 09:04 Location Where Procedure Performed Procedure Location: Operating Room Procedure Stop: 09:10 Reason Performed: Postoperative Analgesia Requesting Provider: Bekah Edgar Timeout Performed Timeout Performed: Yes Monitoring Used ECG, Blood Pressure, SpO2, ETCO2 and See EMR for corresponding vital signs Sterility Sterility: Hand Hygiene, Surgical Cap, Surgical Mask, Sterile Gloves and Chlorhexidine Sedation Given During Procedure Sedation Given (Indicate Dose Given): Other: Medication/Route/Dose:: GETA Patient Mental Status Patient Mental Status: Performed under general anesthesia Nerve Block 1st Nerve Block: Laterality: Right Block Type: TAP Unilateral (Right) Ultrasound Image Saved?: Yes Needle / Catheter Used: 100mm SonoPlex II Local Anesthetic Bolus (Indicate Dose Given): Injected in 3-5ml increments after negative blood aspiration, Bupivacaine 0.25% Dose:: 0.25%/10cc (25mg) and Exparel Dose:: 1.3%/10cc (133mg) Additives (Indicate Dose Given): Epinephrine to make 1:200,000 (5mcg/ml) Dose:: 50mcg (1:200,000) Ultrasound: Sterile probe cover and gel used Nerve Stimulator: Not Used Paresthesia: None Procedure Tolerated: No Complications Procedure Outcome: Successful Performed By: Americo Schaefer
[2023-10-17] MEDS: Bupivacaine 0.25% Pres-Free 30 ML VIAL (09:57)
[2023-10-17] MEDS: fentaNYL 100 MCG/2 ML VIAL IVP ×2 (10:25→10:45)
--- NOTE | 2023-10-17 13:22 | W.ANESPOSTOP ---
Postoperative Evaluation Date, Time and Location Date Performed: 10/17/23 Time Performed: 13:22 Patient Location: Day Surgery Unit Vital Signs Most Recent Imported Vital Signs: Most Recent Vital Signs Temp Pulse Resp BP Pulse Ox 36.5 C 60 16 104/74 97 10/17/23 11:34 10/17/23 11:34 10/17/23 11:34 10/17/23 11:34 10/17/23 11:34 Pain Score Most Recent Pain Score: Most Recent Pain Score Pain Level 2 10/17/23 11:34 Assessment Mental Status: Awake (Alert & Oriented to Patient Baseline) Airway and Respiratory Function: Patent airway with normal (patient baseline) respiratory exam Cardiovascular Function: Hemodynamically Stable Hydration Status: Adequately Hydrated Nausea & Vomiting: No Nausea or Vomiting Pain: Pt. Denies Any Pain Peripheral Nerve Block: Patient did not receive a nerve block
== END 2023-10-17 13:25 | disposition home or self-care (01) ==
PROVIDERS: PCP Family Medicine; Visit Provider Surgery
PROC: (CPT 49505; principal; 2023-10-17 08:30)
DX: K40.90 Unilateral inguinal hernia, without obstruction or gangrene, not specified as recurrent (principal)
CPT/HCPCS: 49505; 76942; C1781; J0131; J0171; J1100; J1885; J2001; J2250; J2405; J2704; J3010

== ENCOUNTER → 2023-10-30 12:53 | Outpatient (BNVA) | payer MEDICARE, SELFPAY | PROVIDERS: PCP Family Medicine; Referring Provider Family Medicine; Visit Provider Surgery | DX: Z48.817 Encounter for surgical aftercare following surgery on the skin and subcutaneous tissue (principal); R10.31 Right lower quadrant pain; K40.90 Unilateral inguinal hernia, without obstruction or gangrene, not specified as recurrent ==

== ENCOUNTER 2024-04-01 16:54 | Emergency (ER) | payer MEDICARE, SELFPAY ==
--- NOTE | 2024-04-01 16:45 | RT.EKG_ITS ---
APPROVED REPORT Exam: Resting ECG Reason for Exam: Chest Pain Patient Location: E HR:79 bpm ECG Measurements Heart Rate 79 AXIS FL 175 P 58 QRSd 90 QRS 39 QT 363 T 31 QTc 416 Conclusion Sinus rhythm...normal P axis, V-rate 60- 99 Ventricular bigeminy...bigeminy string>4 w/ V complexes Low voltage, extremity leads...all extremity leads <0.5mV Narrow complex normal sinus rhythm with PVCs in a pattern of ventricular bigeminy. Normal axis. No ST segment abnormalities. No T wave inversions. No prior for comparison.
[2024-04-01 16:57] VITALS: BP 142/78; PULSE 81; RESP 17; TEMP 36.6; O2SAT 95
[2024-04-01 17:02] VITALS: RESP 17
[2024-04-01] MEDS: Ketorolac 15 MG/ML VIAL 7.5 MG IVP (17:20)
[2024-04-01] MEDS: Orphenadrine 60 MG/2 ML VIAL 30 MG IVP (17:20)
[2024-04-01 17:22] LABS: Abs Immature Grans 0.05 10^3/uL (0.0-0.06); Absolute Eosinophil Count 0.44 10^3/uL (0.0-0.7); Absolute Lymphocyte Count 3.92 10^3/uL (1.2-3.4); Basophils % 0.8 %; Eosinophils % 3.3 %; HCT 46.9 % (40.0-50.0); HGB 15.8 g/dL (13.5-17.5); Immature Grans % 0.4 %; Lymphocytes % 29.6 %; MCH 31.2 pg (27.0-33.0); MCHC 33.7 % (32.0-36.0); MCV 93 fL (80-95); MPV 9.1 fL (8.0-11.0); Monocytes % 8.1 %; Neutrophils % 57.8 %; Platelet Count 266 10^3/uL (130-400); RBC 5.07 10^6/uL (4.36-5.78); RDW 13.2 % (11.8-14.1); RDW-SD 44.4 fL; WBC 13.26 10^3/uL (4.4-10.8)
[2024-04-01 17:28] LABS: Absolute Basophil Count 0.11 10^3/uL (0.0-0.2); Absolute Monocyte Count 1.07 10^3/uL (0.1-0.8); Absolute Neutrophil Count 7.66 10^3/uL (1.2-6.7)
[2024-04-01 17:29] LABS: ESR 11 mm/hr (0-20)
[2024-04-01 17:52] LABS: D-Dimer 795 ng/mlFEU (<500)
--- NOTE | 2024-04-01 18:00 | DI.CT_ITS ---
Exam(s) CT CHEST PE CTA EXAM: CT CHEST PE CTA CLINICAL HISTORY: chest pain. TECHNIQUE: Imaging Protocol: Axial CT angiography was performed with multi-slice acquisition and mu lti-planar reconstructions as well as axial, coronal and sagittal MIP reconstructions. CONTRAST MATERIAL: Intravenous: Omnipaque 350 Contrast volume:100 ml COMPARISON: CT CT CHEST LUNG CANCER SCREEN from 03/07/2023 FINDINGS: Exam limited by poor pulmonary inflation. Pulmonary Arteries: No evidence of filling defect to suggest pulmonary emboli. Tracheobronchial tree: No mucous plugging. Mediastinum and Yumi: No dominant adenopathy or fluid collection. Pulmonary parenchyma: Suboptimal evaluation due to expiratory changes. Increased density seen laboratory mechanical technician iorly in the lung bases, likely dependent changes and mild atelectasis. No consolidation or dominant measurable mass. Pleura: No effusion or pneumothorax. Heart: The heart is not dilated. Mild coronary artery calcifications are seen. Aorta: Thoracic aorta non-dilated. No dissection. Upper abdomen: No acute findings. Bones: Severe degenerative changes in the spine. Tubes, Catheters, and Lines: None Soft tissues: Unremarkable. IMPRESSION: No evidence of pulmonary embolism. RADIATION DOSE DELIVERED: 597.68mGy.cm Total DLP DATA REPOSITORY: All CT scans at this facility are submitted to the National Radiology Data Registry (NRDR) Dose Index Registry (DIR) with the [employer] (ACR). RADIATION OPTIMIZATION: All CT scans at this facility use at least one of these dose optimization te chniques: automated exposure control; mA and/or kV adjustment per patient size (includes targeted exa ms where dose is matched to clinical indication); or iterative reconstruction.
[2024-04-01 18:16] LABS: ALT 17 U/L (16-63); AST 16 U/L (15-37); Albumin 3.5 g/dL (3.4-5.0); Alkaline Phosphatase 55 U/L (46-116); Anion Gap 9.6 mmol/L (3-11); BUN 17 mg/dL (7-18); Bilirubin, Total 0.5 mg/dL (0.2-1.0); C-Reactive Protein < 0.50 mg/dL (<or=0.5); CO2 26.4 mmol/L (21.0-32.0); Calcium 8.7 mg/dL (8.5-10.1); Chloride 104 mmol/L (98-107); Creatine Kinase 104 U/L (39-308); Estimated GFR 84.05 (mL/min/1.73m2); Glucose 114 mg/dL (74-106); Lipase 43 U/L (16-77); Potassium 3.9 mmol/L (3.5-5.1); Sodium 140 mmol/L (136-145); TSH (W/Ref FT4) 3.13 uIU/mL (0.36-3.74); Total Protein 6.7 g/dL (6.4-8.2); Troponin I < 50 ng/L (< or =60)
[2024-04-01] MEDS: Omnipaque 350 MG/ML 100 ML BTL IJ (18:24)
[2024-04-01] MEDS: Normal Saline - Diluent 50 ML VIAL IJ (18:26)
--- NOTE | 2024-04-01 19:18 | W.ED.GENAD ---
Discharge Plan Disposition Patient Disposition: Home Condition: Stable Discharge Details Clinical Impression: Atypical chest pain Primary Care Provider: Verónica Greer ED Provider: Katya Santos Home Meds and New Rx's Prescriptions: New cyclobenzaprine 10 mg tablet 10 mg PO TID PRNQty: 14 0RF Continued ibuprofen 200 mg tablet 800 mg PO Q6H PRN sildenafil [Viagra] 100 mg tablet 100 mg PO DAILY PRN Rx Instructions: administer 30 minutes to 4 hours before activity acetaminophen [Tylenol] 325 mg capsule 325 mg PO ONCE PRN Discharge Instructions Instructions: Chest Pain (ED) Additional Instructions: Take the Flexeril 5 to 10 mg every 8 hours as needed for pain. Take ibuprofen 600 mg every 8 hours for the next 3 to 5 days with food You may take Tylenol 650 mg every 6 hours as needed for pain and return earlier should you have new or worsening complaints Recommend following up with your doctor next week for reassessment and limit your lifting for the next several days Referrals: Verónica Greer MD [Primary Care Provider] - 1 week HPI General Date/Time Provider Initiated Documentation: 04/01/24 16:57. HPI Narrative: This 63-year-old gentleman presents with report of chest pain since this morning when he awoke. He states yesterday he had some wrist and bilateral arm pain but he has been moving heavy bags of Lyme. He denies any shortness of breath, nausea, diaphoresis. He does smoke tobacco daily. He denies any alcohol use and has been sober for 6 years. He smokes marijuana as well. He denies any calf pain or swelling, recent flights, surgeries, long drives. He denies any hemoptysis. He states that the pain is worse with movement and position change. Denies any abdominal pain. Related Data Home Medications Medication Instructions Recorded Confirmed ibuprofen 200 mg tablet 800 mg PO Q6H PRN 07/02/20 04/01/24 sildenafil 100 mg tablet (Viagra) 100 mg PO DAILY PRN 06/15/22 04/01/24 acetaminophen 325 mg capsule 325 mg PO ONCE PRN 08/14/23 04/01/24 (Tylenol) cyclobenzaprine 10 mg tablet 10 mg PO TID PRN #14 tabs 04/01/24 Previous Rx's Medication Instructions Recorded cyclobenzaprine 10 mg tablet 10 mg PO TID PRN #14 tabs 04/01/24 Allergies Allergy/AdvReac Type Severity Reaction Status Date / Time Penicillins Allergy Severe Anaphylaxsi Unverified 04/01/24 17:03 s General Stated Complaint: Chest Pain MOON: 2 Exam Narrative Exam Narrative: Alert and oriented 63-year-old male presenting with uvula midline, oropharynx patent, no acute distress, pupils equal round reactive to light and accommodation without scleral icterus or jaundice, lungs clear to auscultation, cardiac rate rhythm regular, no abdominal tenderness, chest wall tenderness without crepitus or no abdominal tenderness appreciated, no CVA tenderness, neurovascularly intact to bilateral lower extremities. Course Vital Signs Vital signs: Vital Signs Temperature 36.6 C 04/01/24 16:57 Pulse 81 04/01/24 16:57 Respiratory Rate 17 04/01/24 16:57 Blood Pressure 142/78 H 04/01/24 16:57 Pulse Oximetry 95 04/01/24 16:57 Temperature 36.6 C 04/01/24 16:57 Temperature Source Oral 04/01/24 16:57 Pulse 81 04/01/24 16:57 Respiratory Rate 17 04/01/24 17:02 Respiratory Effort Short of Breath 04/01/24 17:02 Respiratory Depth Normal 04/01/24 17:02 Respiratory Pattern Normal 04/01/24 17:02 Blood Pressure 142/78 H 04/01/24 16:57 Blood Pressure Position Sitting 04/01/24 16:57 Pulse Oximetry 95 04/01/24 16:57 Oxygen Delivery Method Room Air 04/01/24 16:57 Oxygen Flow Rate 0 04/01/24 16:57 Pain Level 10 04/01/24 17:20 Lab/Test Results Lab/Test Results: Laboratory Tests Range/Units 04/01/24 04/01/24 17:11 17:36 WBC (4.4-10.8) 10^3/uL 13.26 H RBC (4.36-5.78) 10^6/uL 5.07 Hgb (13.5-17.5) g/dL 15.8 Hct (40.0-50.0) % 46.9 MCV (80-95) fL 93 MCH (27.0-33.0) pg 31.2 MCHC (32.0-36.0) % 33.7 RDW (11.8-14.1) % 13.2 Plt Count (130-400) 10^3/uL 266 MPV (8.0-11.0) fL 9.1 Immature Gran % % 0.4 Neutrophils % % 57.8 Lymphocytes % % 29.6 Monocytes % % 8.1 Eosinophils % % 3.3 Basophils % % 0.8 Nucleated RBC % (0.0-0.3) % 0.0 Absolute Neutrophils (1.2-6.7) 10^3/uL 7.66 H Absolute Lymphocytes (1.2-3.4) 10^3/uL 3.92 H Absolute Monocytes (0.1-0.8) 10^3/uL 1.07 H Absolute Eosinophils (0.0-0.7) 10^3/uL 0.44 Absolute Basophils (0.0-0.2) 10^3/uL 0.11 ESR (0-20) mm/hr 11 D-Dimer (<500) ng/mlFEU 795 H Sodium Cancelled 140 Potassium Cancelled 3.9 Chloride Cancelled 104 Carbon Dioxide Cancelled 26.4 Anion Gap Cancelled 9.6 BUN Cancelled 17 Creatinine Cancelled 1.0 Est GFR (CKD-EPI 2020) Cancelled 84.05 Glucose Cancelled 114 H Calcium Cancelled 8.7 Magnesium Cancelled 2.0 Total Bilirubin Cancelled 0.5 AST Cancelled 16 ALT Cancelled 17 Alkaline Phosphatase Cancelled 55 Creatine Kinase Cancelled 104 Troponin I Cancelled < 50 C-Reactive Protein Cancelled < 0.50 Total Protein Cancelled 6.7 Albumin Cancelled 3.5 Lipase Cancelled 43 TSH Cancelled 3.13 Medical Decision Making 63-year-old male presenting with report of chest pain. On exam he has reproducible chest wall tenderness, I did order CTA as D-dimer is elevated at 746 CTA was suboptimal but does not show evidence of large PE and patient is not hypoxic or tachycardic so my suspicion for PE is low per radiology interpretation my review.. Patient has a negative single troponin. He declines staying for a second troponin is aware he has not been fully evaluated from a cardiac standpoint. He does have risk factors including age and tobacco use. He does have mild leukocytosis at 13,000 without obvious evidence of infection. Glucose of 114. He did order a tick panel which is pending. At this time I think patient stable for discharge home he is leaving against medical recommendation after joint decision-making just secondary to lack of a 3-hour troponin and risk factors for coronary artery disease. He has an EKG that is nonischemic. He is instructed to follow-up with his primary care physician and refrain from heavy lifting. He is given Flexeril prescription for home for musculoskeletal pain and low threshold to return should he have new or worsening complaints. Recheck in 48 hours recommended Quality:SDOH Health Related Social Needs: No Data to Display PFSH All Active Problems (Updated 04/01/24 @ 19:19 by SANTOS Valentin) Atypical chest pain (Acute) Encounter for screening colonoscopy (Acute) Right groin pain (Acute) Weight loss (Acute) Right inguinal hernia (Acute) Positive fecal occult blood test (Acute) Screening for colon cancer (Acute) Alcoholism (Acute) chronic, in remission Medical History (Updated 04/01/24 @ 19:19 by SANTOS Valentin) Right hip pain Erectile dysfunction Hypertensive retinopathy Femoroacetabular impingement of right hip Derangement of right SI joint Lumbar spondylosis Low back pain Obesity Tobacco dependence Degenerative joint disease Gout Obstructive sleep apnea Anxiety Seasonal allergic rhinitis Subclinical hypothyroidism Prediabetes Bipolar disorder with depression Fatty infiltration of liver Hearing loss, bilateral Hypertension Hyperlipidemia Pyuria, sterile GERD (gastroesophageal reflux disease) Major depression, chronic Surgical History (Updated 10/17/23 @ 14:12 by Susan Her) Inguinal hernia of right side without obstruction or gangrene (~10/2023) History of total bilateral knee replacement (TKR) S/P insertion of spinal cord stimulator placed 1999-pt. states battery no longer works but hardware is still in there Hx of arthroscopic knee surgery H/O spinal fusion History of colonoscopy Last one in [facility] per referral note Social History Smoking/Tobacco Use Status: Current every day Tobacco Type: cigarettes Smoking risk assessment performed?: Yes Alcohol Intake: former Drug use: Occasionally Substance use type: marijuana Housing: house Current gender identity: male Do you feel safe at home: Yes Do you feel safe in your relationship?: Yes
[2024-04-01] MEDS: Cyclobenzaprine 10 MG TAB 5 MG PO (19:47)
[2024-04-03 10:29] LABS: Lyme Ab w Rflx to Lyme Confirm Negative (Negative)
[2024-04-05 20:15] LABS: Anaplasma phagocytophilum Negative (Negative); B. miyamotoi PCR Negative (Negative); Babesia divergens/MO-1 Negative (Negative); Babesia duncani Negative (Negative); Babesia microti Negative (Negative); Ehrlichia chaffeensis Negative (Negative); Ehrlichia ewingii/canis Negative (Negative); Ehrlichia muris eauclairensis Negative (Negative)
== END 2024-04-01 19:50 | disposition home or self-care (01) ==
PROVIDERS: Emergency Provider Physician Assistant; PCP Family Medicine
DX: R07.89 Other chest pain (principal); I10 Essential (primary) hypertension; E78.5 Hyperlipidemia, unspecified; F17.210 Nicotine dependence, cigarettes, uncomplicated; Z98.1 Arthrodesis status
CPT/HCPCS: 36415; 71275; 80053; 82550; 83690; 85652; 87798; 93005; 96374; 99285; J2360; 83735; 84443; 84484; 85025; 85379; 86140; 86618; 93010; 99284; J1885; J3490

== ENCOUNTER 2024-06-27 11:57 | Outpatient (REF) | payer MEDICARE, SELFPAY ==
[2024-06-27 16:35] LABS: Hemoglobin A1C 5.7 % (<5.7)
[2024-06-27 22:26] LABS: PSA, Screening 0.5 ng/mL (<=4.5)
== END 2024-06-27 11:58 | disposition home or self-care (01) ==
LOC: NCHCN 11:57
PROVIDERS: PCP Family Medicine; Visit Provider Family Medicine
DX: R73.03 Prediabetes (principal); Z12.5 Encounter for screening for malignant neoplasm of prostate
CPT/HCPCS: 84153; 83036

== ENCOUNTER 2024-09-29 01:15 | Outpatient (CLI) | payer MEDICARE, SELFPAY ==
--- NOTE | 2024-09-29 | DI.US_ITS ---
Exam(s) US AAA SCREENING EXAM: US AAA SCREENING CLINICAL HISTORY: ABDOMINAL AORTIC ANEURYSM SCREENING, Z13.6, CURRENT SMOKER COMPARISON: CT ABD PELVIS WITH CONTRAST from 02/14/2018 FINDINGS: Abdominal Aorta: Proximal: 3.1 x 3.0 cm Mid: 2.0 x 2.1 cm Distal: 2.4 x 2.5 cm Iliac's: Right: 1.8 x 1.7 cm Left: 1.5 x 1.5 cm Atherosclerotic calcification is present. IMPRESSION: The aorta proximal to the celiac axis measures 2.1 x 3.0 cm. DATA REPOSITORY:
== END 2024-09-29 01:35 ==
PROVIDERS: PCP Family Medicine; Visit Provider Family Medicine
DX: Z13.6 Encounter for screening for cardiovascular disorders (principal); F17.210 Nicotine dependence, cigarettes, uncomplicated
CPT/HCPCS: 76706

== ENCOUNTER 2024-11-07 14:01 | Outpatient (REF) | payer MEDICARE, SELFPAY ==
[2024-11-07 15:34] LABS: HCT 44.1 % (40.0-50.0); HGB 15.2 g/dL (13.5-17.5); MCH 31.3 pg (27.0-33.0); MCHC 34.5 % (32.0-36.0); MCV 91 fL (80-95); MPV 10.3 fL (8.0-11.0); Platelet Count 222 10^3/uL (130-400); RBC 4.85 10^6/uL (4.36-5.78); RDW 12.9 % (11.8-14.1); RDW-SD 43.3 fL; WBC 6.47 10^3/uL (4.4-10.8)
[2024-11-07 15:52] LABS: Anion Gap 6.6 mmol/L (3-11); BUN 14 mg/dL (7-18); CO2 29.4 mmol/L (21.0-32.0); CREATININE 0.9 mg/dL (0.70-1.30); Calcium 9.1 mg/dL (8.5-10.1); Chloride 107 mmol/L (98-107); Estimated GFR 94.78 (mL/min/1.73m2); Glucose 91 mg/dL (74-106); Potassium 4.3 mmol/L (3.5-5.1); Sodium 143 mmol/L (136-145)
== END 2024-11-07 14:02 | disposition home or self-care (01) ==
LOC: NCHCN 14:01
PROVIDERS: PCP Family Medicine; Visit Provider Family Medicine
DX: R55 Syncope and collapse (principal)
CPT/HCPCS: 80048; 85027

== ENCOUNTER 2024-11-18 02:12 | Outpatient (CLI) | payer MEDICARE, SELFPAY ==
--- NOTE | 2024-11-18 12:30 | DI.US_ITS ---
APPROVED REPORT EXAM: Comprehensive 2D, Doppler, and color-flow Echocardiogram Patient Location: Out-Patient Sales Development Specialist: Nelly Peterson RDCS (AE) Indications: Syncope and Collapse Other Information Study Quality: Adequate. Technically limited study due to body habitus, smoker. Conclusion Normal left ventricular wall thickness and chamber size. Ejection fraction is 59%. Wall motion is n ormal Normal right ventricular size and function Both atria are normal in size Aortic valve is mildly sclerotic and trileaflet without stenosis or regurgitation Mild mitral annular calcification. Trace mitral regurgitation Estimated right ventricular systolic pressure is 22 mmHg Ascending aorta measures 4.23 cm Wall motion Left Ventricle The left ventricle is normal size. The left ventricular systolic function is normal. The left ventric ular ejection fraction is within the normal range. There is normal left ventricular wall thickness. T here is normal LV segmental wall motion. There is no ventricular septal defect visualized. LVEF is 59 %. Right Ventricle The right ventricle is normal size. The right ventricular systolic function is normal. Atria The left atrium size is normal. The right atrium size is normal. The interatrial septum is intact wit h no evidence for an atrial septal defect. Aortic Valve The Aortic valve is mildly sclerotic. Aortic valve is trileaflet. There is no aortic valvular stenosi s. No aortic regurgitation is present. Mitral Valve Mild mitral annular calcification. No evidence of mitral valve stenosis. Trace mitral regurgitation. Tricuspid Valve The tricuspid valve is normal in structure. There is no tricuspid valve stenosis. Mild tricuspid reg urgitation. The RVSP is 22.2 mmHg. Pulmonic Valve The pulmonary valve is normal in structure. There is no pulmonic valvular stenosis. Trace pulmonic re gurgitation. Great Vessels Aortic root is mildly dilated. The ascending aorta is moderately dilated. IVC is normal in size and collapses >50% with inspiration. Pericardium There is no pericardial effusion. 2D Dimensions IVSD d PLAX 1.11 cm M: 0.6-1.2 Ao Root d 3.98 cm M: 3.1 - 3.7 LVPW d PLAX 1.11 cm M: 0.6 - 1.2 Ao Asc Diam d 4.23 cm M: 2.6 - 3.4 LVID d PLAX 4.53 cm M: 4.2 - 5.8 LVDs 3.10 cm M: 2.5 - 4.0 LV EF Teichholz 59.7 % FS 31.59 % LV EDV (Teich) 93.8 mL LV ESV (Teich) 37.8 mL M-Mode TAPSE 2.07 cm (M/F) >1.7 Auto EF LV EDV A4C 129.7 mL LV EDV A2C 166.4 mL LV EDV BP 145.0 mL LV ESV A4C 54.0 mL LV ESV A2C 69.5 mL LV ESV BP 60.3 mL LVEF(%) A4C 58.4 % LVEF(%) A2C 58.2 % LVEF(%) BP 58.4 % LV SV A4C 75.7 ml LV SV A2C 96.9 ml LV SV BP 84.7 ml LV CO A4C 4.4 L/min LV CO A2C 5.9 L/min LV CO BP 5.2 L/min HR A4C 58.35 BPM HR A2C 61.33 BPM LV EDV Index (BP) LA Volume LA Length A4C 5.2 cm LA Length A2C 6.2 cm LA Area A4C s 16.86 cm2 LA Area A2C s 24.48 cm2 LA Vol A4C A-L 46.05 mL LA Vol A2C A-L 81.52 mL LA Vol Biplane A-L 66.9 mL LA Vol/BSA A4C A-L LA Vol/BSA A2C A-L LA Vol/BSA BP A-L 29.5 mL/m2 LA Vol A4C MOD 44.2 mL LA Vol A2C MOD 77.1 mL LA Vol BP MOD 63.2 mL RA Volume RA Area A4C 16.2 cm2 RA ESV A4C (A-L) 45.1mL RA Vol/BSA A4C A-L RA Length A4C 4.9 cm RA ESV A4C (MOD) 42.9mL LV Diastology MV E' medial 0.113 (>0.07 m/s) MV E Vmax 0.78 (0.4-1.3 m/s) MV E/E' MED 6.88 (<14) MV A Vmax 0.95 (0.4-1.3 m/s) MV E' lateral 0.092 (>0.1 m/s) E/A Ratio 0.8 MV E/E' LAT 8.48 (<14) MV E' Average 0.103 m/s MV E/E'(average) 7.60 Aortic Valve AoV Vmax 1.89 m/s LVOT Vmax 1.14 m/s AoV Peak Grad 14.3 mmHg LVOT Peak Grad 5.2 mmHg AoV Area (Vmax) 2.09 cm2 LVOT VTI 0.218 m AoV VTI 0.366 m LVOT Mean Grad 2.9 mmHg AoV Mean Dave. 1.32 m/s LVOT SV 75.63 mL AoV Mean Grad 8.0 mmHg LVOT Diam s 2.10 cm AoV Area (VTI) 2.07 cm2 AV Regurg Peak Gr. 14.33 mmHg Velocity Ratio 0.60 Mitral Valve MV DT 267 (160-240 msec) MV Vmax TIPS 0.90 m/s MV Mean Grad 1.3 (<2mmHg) MV VTI 0.323 m Pulmonary Valve PV Vmax 0.98 (0.5-1.5 m/s) RVOT Vmax 0.75 m/s PV Peak Grad 3.9 mmHg RVOT Peak Gr. 2.2 mmHg PV Mean Dave 0.67 m/s RVOT VTI 0.172 m PV Mean Grad 2.1 mmHg RVOT Mean Gr. 1.3 mmHg Tricuspid Valve RA Pressure 3.00 mmHg TR Vmax 2.19 m/s TV S' 0.14 m/s TR Peak Grad 19.2 mmHg RVSP (TR) 22.2 mmHg
== END 2024-11-18 02:32 ==
PROVIDERS: PCP Family Medicine; Visit Provider Family Medicine
DX: I35.0 Nonrheumatic aortic (valve) stenosis (principal); I34.0 Nonrheumatic mitral (valve) insufficiency
CPT/HCPCS: 93306

== ENCOUNTER 2025-07-02 18:08 | Outpatient (REF) | payer MEDICARE, SELFPAY ==
[2025-07-02 19:13] LABS: Hemoglobin A1C 5.6 % (<5.7)
[2025-07-02 19:23] LABS: Anion Gap 8.0 mmol/L (3-11); BUN 16 mg/dL (7-18); CO2 30.0 mmol/L (21.0-32.0); Calcium 9.0 mg/dL (8.5-10.1); Calculated LDL 150 mg/dL (<100); Chloride 104 mmol/L (98-107); Cholesterol 230 mg/dL (<200); Estimated GFR 94.19 (mL/min/1.73m2); Glucose 92 mg/dL (74-106); HDL Cholesterol 38 mg/dL (>or=40); Potassium 4.3 mmol/L (3.5-5.1); Sodium 142 mmol/L (136-145); Triglyceride 211 mg/dL (<150)
== END 2025-07-02 18:09 | disposition home or self-care (01) ==
LOC: NCHCN 18:08
PROVIDERS: PCP Family Medicine; Visit Provider Family Medicine
DX: H35.033 Hypertensive retinopathy, bilateral (principal)
CPT/HCPCS: 80048; 80061; 83036

== ENCOUNTER 2025-07-21 03:35 | Outpatient (CLI) | payer MEDICARE, SELFPAY ==
--- NOTE | 2025-07-21 | DI.US_ITS ---
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 TECHNIQUE: Ultrasound carotids performed using grayscale, color-flow, and spectral Doppler imaging. COMPARISON: No exams were available for comparison FINDINGS: RIGHT CAROTID ARTERY: Plaque: Mild calcific plaque seen in the carotid bulb and the proximal right internal carotid artery. Velocity elevation: None. LEFT CAROTID ARTERY: Plaque: There is mild calcific plaque seen in the carotid bulb and proximal left internal carotid artery. Velocity elevation: None. VERTEBRAL ARTERIES: Antegrade flow. Measurements: R Bulb: 45.1cm/s PS / 14.9cm/s ED R CCA: 55.1cm/s PS / 19.6cm/s ED R ECA: 53.6cm/s PS / 12.5cm/s ED R ICA Prox: 63.5cm/s PS / 29.7cm/s ED R ICA Mid: 49.4cm/s PS / 24.6cm/s ED R ICA Distal: 60.1cm/s PS /34.5cm/s ED R Vert: 40.9cm/s PS / 15.3cm/s ED R SVR: 1.2 R DVR: 1.5 L Bulb: 38.5cm/s PS / 14.4cm/s ED L CCA: 51.4cm/s PS / 21cm/s ED L ECA: 61.6cm/s PS / 12.7cm/s ED L ICA Prox: 67.6cm/s PS / 31.9cm/s ED L ICA Mid: 73.3cm/s PS / 35.2cm/s ED L ICA Distal: 69.4cm/s PS / 34.5cm/s ED L Vert: 42.8cm/s PS / 20.9cm/s ED L SVR: 1.4 L DVR: 1.7 IMPRESSION: No evidence for hemodynamically significant carotid stenosis. Criteria for Carotid Stenosis: Normal: ICA PSV <125 cm/s no plaque or intimal thickening is visible. <50% stenosis: ICA PSV <125 cm/s and plaque or intimal thickening is visible. 50-69% stenosis: ICA PSV is 125-250 cm/s and plaque is visible. >70% stenosis to near occlusion: ICA PSV >250 cm/s with visible plaque and luminal narrowing. DATA REPOSITORY:
== END 2025-07-21 03:55 ==
LOC: DI 03:35
PROVIDERS: PCP Family Medicine; Visit Provider Family Medicine
DX: H35.82 Retinal ischemia (principal)
CPT/HCPCS: 93880

== ENCOUNTER 2025-10-07 10:56 | Outpatient (REF) | payer MEDICARE, SELFPAY ==
[2025-10-07 16:50] LABS: Cholesterol 202 mg/dL (<200); HDL Cholesterol 46 mg/dL (>40)
== END 2025-10-07 10:57 | disposition home or self-care (01) ==
LOC: NCHCN 10:56
PROVIDERS: PCP Family Medicine; Visit Provider Family Medicine
DX: E78.5 Hyperlipidemia, unspecified (principal)
CPT/HCPCS: 80061